=== PATIENT | male | born 1980 | race Caucasian/White ===

== ENCOUNTER 2016-03-09 13:31 | Emergency (ER) | payer SELFPAY ==
[2016-03-09 14:19] LABS: ABSOLUTE BASOPHILS # (AUTO) 0.1 10^3/uL (0.0-0.2); ABSOLUTE LYMPHOCYTES (AUTO) 1.6 10^3/uL (0.5-4.7); ABSOLUTE MONOCYTES (AUTO) 0.8 10^3/uL (0.1-1.4); ABSOLUTE NEUT (AUTO) 6.8 10^3/uL (1.7-8.2); BASOPHILS % (AUTO) 0.7 % (0-2); EOSINOPHILS % (AUTO) 0.5 % (0-6); LYMPHOCYTES % (AUTO) 16.9 % (13-45); MEAN CORPUSCULAR HEMOGLOBIN 29.8 pg (27.0-33.4); MEAN CORPUSCULAR VOLUME 85 fl (80-97); MONOCYTES % (AUTO) 8.6 % (3-13); RED BLOOD COUNT 5.04 10^6/uL (4.35-5.55); RED CELL DISTRIBUTION WIDTH 12.8 % (11.5-14.0); SEGMENTED NEUTROPHILS % (AUTO) 73.3 % (42-78); WHITE BLOOD COUNT 9.2 10^3/uL (4.0-10.5)
[2016-03-09 14:41] LABS: ALANINE AMINOTRANSFERASE 34 U/L (21-72); ALBUMIN 4.8 g/dL (3.5-5.0); ALKALINE PHOSPHATASE 56 U/L (38-126); ANION GAP 14 (5-19); ASPARTATE AMINO TRANSFERASE 34 U/L (17-59); BLOOD UREA NITROGEN 14 mg/dL (7-20); CALCIUM 9.7 mg/dL (8.4-10.2); CARBON DIOXIDE 27 mmol/L (22-30); CHLORIDE 105 mmol/L (98-107); CREATININE RESULT 0.71 mg/dL (0.52-1.25); GLUCOSE 113 mg/dL (75-110); POTASSIUM 3.8 mmol/L (3.6-5.0); TOTAL PROTEIN 7.8 g/dL (6.3-8.2)
[2016-03-09 14:45] LABS: ALCOHOL < 10 mg/dL (NONE DETECTED)
--- NOTE | 2016-03-09 14:56 | ER Document Report ---
ED Substance Abuse / Acc. OD - General Mode of Arrival: Ambulatory Information source: Patient TRAVEL OUTSIDE OF THE U.S. IN LAST 30 DAYS: No - HPI Patient complains to provider of: Drug withdrawal - Methadone Onset: Other - 9 days ago Associated Symptoms: Other - see above <PUSHPA BRYANT - Last Filed: 03/09/16 15:20> <CHEO RODGERS - Last Filed: 03/09/16 18:22> - General Chief Complaint: Drug Abuse Stated Complaint: DETOX SYMPTOMS Notes: 36 year old male with history of narcotic drug abuse presents to the ED complaining of Methadone withdrawal symptoms that started 9 days ago. Patient states that he has been on Methadone for the past 15 years, and stopped taking it 12 days ago when he moved from [facility] to [place]. Patient denies making any arrangements with a Methadone clinic to resume treatment. Patient denies wanting to take this opportunity to stop using Methadone, but instead wants to stay on the medication. Patient is complaining of diarrhea and a tremor, but denies any nausea or vomiting. Patient denies using any other drugs. (PUSHPA BRYANT) Past Medical History - General Information source: Patient - Social History Smoking Status: Current Every Day Smoker Frequency of alcohol use: None Drug Abuse: Other - Methadone Family History: Reviewed & Not Pertinent - Past Medical History Cardiac Medical History: Reports: Other - Cardiomyopathy Infectious Medical History: Denies: Hx Hepatitis Surgical Hx: Negative <PUSHPA BRYANT - Last Filed: 03/09/16 15:20> Review of Systems - Review of Systems Constitutional: No symptoms reported EENT: No symptoms reported Cardiovascular: No symptoms reported Respiratory: No symptoms reported Gastrointestinal: See HPI, Diarrhea. denies: Vomiting Genitourinary: No symptoms reported Male Genitourinary: No symptoms reported Musculoskeletal: No symptoms reported Skin: No symptoms reported Hematologic/Lymphatic: No symptoms reported Neurological/Psychological: See HPI, Tremor - right hand -: Yes All other systems reviewed and negative <PUSHPA BRYANT - Last Filed: 03/09/16 15:20> Physical Exam - General General appearance: Alert, Other - drooling upon examination In distress: None - HEENT Head: Normocephalic, Atraumatic Eyes: Normal Extraocular movements intact: Yes Pupils: PERRL - Respiratory Respiratory status: No respiratory distress Breath sounds: Normal - Cardiovascular Rhythm: Regular Heart sounds: Normal auscultation - Abdominal Inspection: Normal - Back Back: Normal - Extremities General upper extremity: Normal inspection, Normal ROM General lower extremity: Normal inspection, Normal ROM - Neurological Neuro grossly intact: Yes - except right hand tremor that patient states is associated with withdrawal - Psychological Associated symptoms: Normal affect, Normal mood - Skin Skin Temperature: Warm Skin Moisture: Dry Skin Color: Normal <PUSHPA BRYANT - Last Filed: 03/09/16 15:20> <CHEO RODGERS - Last Filed: 03/09/16 18:22> - Vital signs Vitals: Temp Pulse Resp BP Pulse Ox 98.9 F 97 20 143/101 H 97 03/09/16 13:42 03/09/16 13:42 03/09/16 13:42 03/09/16 13:42 03/09/16 13:42 (PUSHPA BRYANT) (CHEO RODGERS) Course - Laboratory Result Diagrams: 03/09/16 14:05 03/09/16 14:05 <PUSHPA BRYANT - Last Filed: 03/09/16 15:20> - Laboratory Result Diagrams: 03/09/16 14:05 03/09/16 14:05 <CHEO RODGERS - Last Filed: 03/09/16 18:22> - Vital Signs Vital signs: Temp Pulse Resp BP Pulse Ox 98.9 F 97 20 143/101 H 97 03/09/16 13:42 03/09/16 13:42 03/09/16 13:42 03/09/16 13:42 03/09/16 13:42 (PUSHPA BRYANT) (CHEO RODGERS) - Laboratory Laboratory results interpreted by me: 03/09/16 03/09/16 14:05 14:05 Sodium 146.0 H Glucose 113 H Creatine Kinase 194 H Salicylates < 1.0 L Acetaminophen < 10 L (PUSHPA BRYANT) (CHEO RODGERS) Discharge <PUSHPA BRYANT - Last Filed: 03/09/16 15:20> <CHEO RODGERS - Last Filed: 03/09/16 18:22> - Discharge Clinical Impression: Opiate dependence Qualifiers: Substance use status: with unspecified opioid-induced disorder Qualified Code(s ): F11.29 - Opioid dependence with unspecified opioid-induced disorder Condition: Stable Disposition: HOME, SELF-CARE Additional Instructions: Call mobile crisis to arrange a detox facility. Call the [facility] if not interested in going through detox. RETURN TO THE EMERGENCY ROOM IF ANY NEW OR WORSENING SYMPTOMS. Referrals: [facility] [Outside] - 03/09/16 Scribe Attestation: 03/09/16 18:22 I personally performed the services described in the documentation, reviewed and edited the documentation which was dictated to the scribe in my presence, and it accurately records my words and actions. (CHEO RODGERS) Scribe Documentation - Scribe Written by Eloina:: Eloina Sethi, 03/09/2016 15:45 acting as scribe for :: Calderon <PUSHPA BRYANT - Last Filed: 03/09/16 15:20>
[2016-03-09] MEDS ORDERED: RINGERS SOLUTION,LACTATED 1,000 ML IV ONE (14:58)
[2016-03-09] MEDS ORDERED: LORAZEPAM INJ 2 MG/1 ML VIAL IV ONE (14:58)
[2016-03-09] MEDS ORDERED: CLONIDINE HCL 0.1 MG TABLET PO ONE (14:58)
[2016-03-09 15:00] LABS: ADD ON TESTING BLD IN LAB ACKNOWLEDGE
[2016-03-09 15:17] LABS: CREATINE KINASE 194 U/L (55-170)
[2016-03-09 21:56] LABS: APPEARANCE,URINE CLEAR; BILIRUBIN,URINE NEGATIVE (NEGATIVE); GLUCOSE, URINE NEGATIVE (NEGATIVE); KETONES,URINE NEGATIVE (NEGATIVE); LEUKOCYTE ESTERASE,URINE NEGATIVE (NEGATIVE); NITRITE,URINE NEGATIVE (NEGATIVE); PROTEIN,URINE NEGATIVE (NEGATIVE); URINE SPECIFIC GRAVITY 1.005; UROBILINOGEN,URINE NEGATIVE mg/dL (<2.0)
[2016-03-09 22:10] LABS: URINE BARBITURATES SCREEN NEGATIVE; URINE METHADONE SCREEN NEGATIVE; URINE PHENCYCLIDINE SCREEN NEGATIVE
[2016-03-10 01:52] VITALS: BP 130/88
--- NOTE | 2016-03-10 13:18 | PSYCHOLOGICAL NOTE ---
Psych Note - Psych Note Psych Note: Patient is a 36 year old male who presents with requests for assistance with methadone withdrawal reporting he recently moved here from [facility], where he was reportedly prescribed Methadone for 15+ years. Patient reported his last dose of Methadone was on or around the 24 of February. Patient states he was in a 30 day treatment program in [facility] and prescribed Methadone daily; however, was discharged with the plans to take a bus to [facility] to reside with his cousin, without any prescriptions for the medication. Patient also reports he was prescribed Haldol while in patient. Patient reports he did smoke marijuana at the bus station prior to boarding, but denies any use since. Patient reports generally feeling unwell, n /v/d. Patient states he is interested in pursuing a detox program. He denies any prior suicide attempts, but does report an accidental Heroin OD a number of years ago. Patient denies current suicidal ideation, intent, plan, or means. Patient provides verbal consent to speak with his cousin, who is bedside. Patient's cousin reports the patient has along history of substance abuse, specifically Heroin; however, was clean with the help of Methadone for a number of years. He states the patient relapsed, and was sent to a rehab facility for 30 days. Cousin reports the patient had no place to live in [facility] upon discharge, and the family did not want him to return to to [facility], where he started his addiction, so he came to reside with him and his family here. Cousin reports he and his were under the impression that the patient would be clean and detoxed from all substances, to include Methadone; however, soon found out that is not the case. Cousin reports no concerns for his safety, but states he is interested in detox and not continuing the Methadone treatment. Patient is A&Ox4. Mood is euthymic with flat affect. Patient denies suicidal/ homicidal ideations, intent, plan, or means. Patient denies A/V H; delusions not noted. Thought processes were guarded. Conversational speech was low for rate, tone, and prosody. Intellectual abilities were estimated within average range. Attention and focus were fair. Insight, judgment, and impulse control were poor. 292.0 (F11.23) Opioid Withdrawal Patient is psychiatrically cleared for discharge to pursue detox placement. Patient denies suicidal/homicidal ideations, intent, plan, or means. Patient does not appear to be responding to internal stimuli and therefor does not meet criteria for IVC under the [id number]. Patient and family were provided numerous resources, to include local mobile crisis programs to assist with detox placement. I consulted with Dr. Ramirez in regards to the care and management of this patient. ED MD is in agreement with disposition and recommendations.
--- NOTE | 2016-03-10 22:01 | EKG REPORT ---
SEVERITY:- ABNORMAL ECG - SINUS RHYTHM WITH BASELINE ARTIFACTS NONSPECIFIC T ABNORMALITIES, LATERAL LEADS : Confirmed by: Medardo Almazan 10-Mar-2016 22:00:56
== END 2016-03-09 18:30 | disposition home or self-care (01) ==
LOC: ER 13:31
DX: F11.29 Opioid dependence with unspecified opioid-induced disorder (principal); R19.7 Diarrhea, unspecified; R25.1 Tremor, unspecified; F17.200 Nicotine dependence, unspecified, uncomplicated
CPT/HCPCS: 93005; 99285; 96361; 96374; 36415; 82550; 83735; 85025; 80053; 81001; 84484; 93010; G0479 ×4; J2060; J7120; 80307

== ENCOUNTER 2016-03-10 12:46 | Emergency (ER) | payer SELFPAY ==
[2016-03-10 12:55] VITALS: BP 111/83
--- NOTE | 2016-03-10 13:57 | ER Document Report ---
ED General - General Information source: Patient, Relative TRAVEL OUTSIDE OF THE U.S. IN LAST 30 DAYS: No - HPI Patient complains to provider of: Medical clearence Associated symptoms: Other - See above <LEONARDO CHURCHILL - Last Filed: 03/10/16 14:24> <CHEO RODGERS - Last Filed: 03/10/16 19:00> - General Chief Complaint: Medical Clearance Stated Complaint: EVAL FOR DETOX CENTER Notes: Patient is a 36 year old male who presents to the emergency department with his family in order to obtain a medical clearance to be admitted to [facility] [place]. Patient was at this facility yesterday for the same request but is missing an EKG. Patient is drooling and has a tremor in his hands. Patient is currently withdrawing from Methadone for the past 13 days after moving to [place] from [place] and completing his supply. (LEONARDO CHURCHILL) - Related Data Allergies/Adverse Reactions: No Known Drug Allergies Allergy (Verified 03/10/16 12:52) Penicillins Allergy (Verified 03/10/16 12:56) Sulfa (Sulfonamide Antibiotics) Allergy (Verified 03/10/16 12:56) Past Medical History - General Information source: Patient - Social History Smoking Status: Unknown if Ever Smoked Drug Abuse: Prescription drugs Family History: Reviewed & Not Pertinent <LEONARDO CHURCHILL - Last Filed: 03/10/16 14:24> Review of Systems - Review of Systems Constitutional: No symptoms reported EENT: See HPI, Other - drooling Cardiovascular: No symptoms reported Respiratory: No symptoms reported Gastrointestinal: No symptoms reported Genitourinary: No symptoms reported Male Genitourinary: No symptoms reported Musculoskeletal: No symptoms reported Skin: No symptoms reported Hematologic/Lymphatic: No symptoms reported Neurological/Psychological: See HPI, Tremor -: Yes All other systems reviewed and negative <LEONARDO CHURCHILL - Last Filed: 03/10/16 14:24> - Review of Systems Neurological/Psychological: See HPI <CHEO RODGERS - Last Filed: 03/10/16 19:00> Physical Exam - Vital signs Interpretation: Normal - General General appearance: Other - drooling - HEENT Head: Normocephalic, Atraumatic - Respiratory Respiratory status: No respiratory distress - Extremities General upper extremity: Normal inspection General lower extremity: Normal inspection - Neurological Neuro grossly intact: Yes - hand tremor associated with withdrawl <LEONARDO CHURCHILL - Last Filed: 03/10/16 14:24> - HEENT Neck: Normal - Cardiovascular Rhythm: Regular - Abdominal Inspection: Normal - Back Back: Normal - Extremities General upper extremity: Normal inspection - Patient does have a little bit of the shakes in both of his hands and forearms as was present yesterday General lower extremity: Normal inspection - Psychological Associated symptoms: Depressed - Skin Skin Temperature: Warm Skin Moisture: Dry Skin Color: Normal <CHEO RODGERS - Last Filed: 03/10/16 19:00> - Vital signs Vitals: Temp Pulse Resp BP Pulse Ox 98.4 F 86 20 111/83 97 03/10/16 12:54 03/10/16 12:54 03/10/16 12:54 03/10/16 12:54 03/10/16 12:54 (CHEO RODGERS) Discharge <LEONARDO CHURCHILL - Last Filed: 03/10/16 14:24> <CHEO RODGERS - Last Filed: 03/10/16 19:00> - Discharge Clinical Impression: Opiate dependence Qualifiers: Substance use status: with unspecified opioid-induced disorder Qualified Code(s ): F11.29 - Opioid dependence with unspecified opioid-induced disorder Condition: Stable Disposition: REHAB FACILITY Additional Instructions: Take the copies of the lab work and EKG back to [facility]. Referrals: [facility] [Provider Group] - 03/10/16 Scribe Attestation: 03/10/16 14:08 I personally performed the services described in the documentation, reviewed and edited the documentation which was dictated to the scribe in my presence, and it accurately records my words and actions. (CHEO RODGERS) Scribe Documentation - Scribe Written by Zia:: zia Small, 03/10/16, 14:27 acting as scribe for :: Calderon <LEONARDO CHURCHILL - Last Filed: 03/10/16 14:24>
== END 2016-03-10 14:45 ==
LOC: ER 12:46
DX: F11.23 Opioid dependence with withdrawal (principal); R25.1 Tremor, unspecified; Z79.899 Other long term (current) drug therapy
CPT/HCPCS: 99282

== ENCOUNTER 2016-03-14 10:38 | Emergency (ER) | payer SELFPAY ==
--- NOTE | 2016-03-14 10:53 | ER Document Report ---
ED Medical Screen (RME) - General Chief Complaint: Drug Abuse Stated Complaint: BODY SHAKES Time seen by provider: 10:50 Mode of Arrival: Medic Information source: Patient Notes: 36 yo male presents to ed for tremors from detoxing from heroin since 02/25/16. n THinks he had a seizure not witnessed. TRAVEL OUTSIDE OF THE U.S. IN LAST 30 DAYS: No - HPI Onset: Other - 02/25/16 Onset/Duration: Intermittent Quality of pain: Other - seizures last witnessed 3 days ago he thinks this am. Severity: None Pain Level: Denies Associated Symptoms: Other - shaky tremors Exacerbated by: Denies Relieved by: Denies Similar symptoms previously: Yes Recently seen / treated by doctor: Yes - Related Data Smoking: Non-smoker, Quit less than 1 year Frequency of alcohol use: None Drug Abuse: Heroin, Other - methadone Allergies/Adverse Reactions: No Known Drug Allergies Allergy (Verified 03/10/16 12:52) Penicillins Allergy (Verified 03/10/16 12:56) Sulfa (Sulfonamide Antibiotics) Allergy (Verified 03/10/16 12:56) Past Medical History GI Medical History: Denies: Hx Hepatitis Infectious Medical History: Denies: Hx Hepatitis
[2016-03-14] MEDS ORDERED: NORMAL SALINE 1000 ML 1,000 ML IV ONE ×2 (11:52→14:36)
[2016-03-14 11:53] LABS: ABSOLUTE BASOPHILS # (AUTO) 0.1 10^3/uL (0.0-0.2); ABSOLUTE LYMPHOCYTES (AUTO) 0.6 10^3/uL (0.5-4.7); ABSOLUTE MONOCYTES (AUTO) 0.5 10^3/uL (0.1-1.4); ABSOLUTE NEUT (AUTO) 5.7 10^3/uL (1.7-8.2); BASOPHILS % (AUTO) 0.7 % (0-2); EOSINOPHILS % (AUTO) 0.5 % (0-6); HEMATOCRIT 38.5 % (37.9-51.0); HEMOGLOBIN 13.5 g/dL (13.5-17.0); LYMPHOCYTES % (AUTO) 8.9 % (13-45); MEAN CORPUSCULAR HEMOGLOBIN 29.8 pg (27.0-33.4); MEAN CORPUSCULAR HGB CONC 34.9 g/dL (32.0-36.0); MEAN CORPUSCULAR VOLUME 85 fl (80-97); MONOCYTES % (AUTO) 7.4 % (3-13); RED BLOOD COUNT 4.51 10^6/uL (4.35-5.55); RED CELL DISTRIBUTION WIDTH 13.1 % (11.5-14.0); SEGMENTED NEUTROPHILS % (AUTO) 82.5 % (42-78); WHITE BLOOD COUNT 6.9 10^3/uL (4.0-10.5)
--- NOTE | 2016-03-14 11:53 | ER Document Report ---
ED General - General Chief Complaint: Drug Abuse Stated Complaint: BODY SHAKES Mode of Arrival: Medic TRAVEL OUTSIDE OF THE U.S. IN LAST 30 DAYS: No - Related Data Allergies/Adverse Reactions: Penicillins Allergy (Verified 03/14/16 10:50) Sulfa (Sulfonamide Antibiotics) Allergy (Verified 03/14/16 10:50) Past Medical History - General Information source: Patient - Social History Smoking Status: Former Smoker Chew tobacco use (# tins/day): No Frequency of alcohol use: None Drug Abuse: Heroin, Other - methadone Family History: Reviewed & Not Pertinent Patient has suicidal ideation: No Patient has homicidal ideation: No GI Medical History: Denies: Hx Hepatitis Infectious Medical History: Denies: Hx Hepatitis Course - Laboratory Result Diagrams: 03/14/16 11:35 03/14/16 11:35
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
[2016-03-14] MEDS ORDERED: LORAZEPAM INJ 2 MG/1 ML VIAL IV ONE (12:11)
[2016-03-14 12:15] LABS: ALANINE AMINOTRANSFERASE 40 U/L (21-72); ALBUMIN 3.8 g/dL (3.5-5.0); ALKALINE PHOSPHATASE 50 U/L (38-126); ANION GAP 12 (5-19); ASPARTATE AMINO TRANSFERASE 26 U/L (17-59); BLOOD UREA NITROGEN 11 mg/dL (7-20); CALCIUM 9.3 mg/dL (8.4-10.2); CARBON DIOXIDE 26 mmol/L (22-30); CHLORIDE 106 mmol/L (98-107); CREATINE KINASE 85 U/L (55-170); GLUCOSE 103 mg/dL (75-110); POTASSIUM 3.3 mmol/L (3.6-5.0); TOTAL PROTEIN 6.6 g/dL (6.3-8.2)
[2016-03-14 12:21] LABS: ALCOHOL < 10 mg/dL (NONE DETECTED)
[2016-03-14 12:25] LABS: CREATINE KINASE MB 0.5 ng/mL (<4.55); TROPONIN I 0.019 ng/mL
[2016-03-14 13:07] LABS: APPEARANCE,URINE CLEAR; BILIRUBIN,URINE NEGATIVE (NEGATIVE); GLUCOSE, URINE NEGATIVE (NEGATIVE); KETONES,URINE TRACE mg/dL (NEGATIVE); LEUKOCYTE ESTERASE,URINE NEGATIVE (NEGATIVE); NITRITE,URINE NEGATIVE (NEGATIVE); PROTEIN,URINE NEGATIVE (NEGATIVE); URINE SPECIFIC GRAVITY 1.017
[2016-03-14 13:15] LABS: URINE BARBITURATES SCREEN NEGATIVE; URINE METHADONE SCREEN NEGATIVE; URINE PHENCYCLIDINE SCREEN NEGATIVE
--- NOTE | 2016-03-14 13:49 | EKG REPORT ---
SEVERITY:- ABNORMAL ECG - ARTIFACTS rec REPEAT EKG MOST LIKELY SINUS RHYTHM NONSPECIFIC INTRAVENTRICULAR CONDUCTION DELAY ST DEPRESSION, CONSIDER ISCHEMIA, INF LEADS : Confirmed by: Medardo Almazan 14-Mar-2016 13:48:32
[2016-03-14] MEDS ORDERED: DIPHENHYDRAMINE HCL 50 MG/ML VIAL IV ONE (14:36)
[2016-03-14] MEDS ORDERED: POTASSIUM CHLORIDE 20 MEQ/15 ML UDCUP PO ONE (15:02)
[2016-03-14 18:02] VITALS: BP 136/96
== END 2016-03-14 18:02 | disposition home or self-care (01) ==
LOC: ER 10:38
DX: G25.2 Other specified forms of tremor (principal); R19.7 Diarrhea, unspecified; K11.7 Disturbances of salivary secretion; R63.0 Anorexia; Z86.59 Personal history of other mental and behavioral disorders; Z88.0 Allergy status to penicillin; Z88.2 Allergy status to sulfonamides; Z87.891 Personal history of nicotine dependence; F32.9 Major depressive disorder, single episode, unspecified
CPT/HCPCS: 93005; 99285; 96361; 96374; 96375; 36415; 82553; 80307 ×3; 82550; 83735; 85025; 80053; 81001; 84484; 70450; 72125; 93010; J1200; J2060; J7030